=== PATIENT | male | born 1965 | race Caucasian/White ===

== ENCOUNTER 2018-04-25 19:00 | Emergency (ER) | payer MEDICAID ==
[~2018-04-25] VITALS: Ht 167.6 cm; Wt 67.1 kg
[2018-04-25 19:23] VITALS: BP 149/103
--- NOTE | 2018-04-25 19:48 | NUR ---
PT AMBULATED TO LOBBY WITH VSS. ACCOMPANIED BY FAMILY.
--- NOTE | 2018-04-25 20:26 | NUR ---
53/M BIB SON FOR ETOH INTOXICATION. PT HAS BEEN DRINKING 3-4 BEERS FOR 2 WEEKS. PT REPORTS 4/10 DIFFUSE ABD PAIN. DENIES FEVER, NAUSEA, VOMITING, DIARRHEA, CONSTIPATION. PT AOX4, GCS 14, WITH MILD CONFUSION, AMBULATORY, RR EVEN AND UNLABORED. LUNG SOUNDS CLEAR BL. BS ACTIVE X4, ABD SOFT ROUND NONTENDER.
[2018-04-25 20:51] LABS: BASOPHILS # (AUTO) 0.1 K/uL (0.00-0.22); BASOPHILS % (AUTO) 1.2 % (0.0-2.0); EOSINOPHILS % (AUTO) 0.2 % (0.0-4.0); HEMATOCRIT 50.9 % (36-52); HEMOGLOBIN 17.1 g/dL (12.0-18.0); LYMPHOCYTES # (AUTO) 0.9 K/uL (2.0-11.5); LYMPHOCYTES % (AUTO) 19.2 % (20.5-51.1); MEAN CORPUSCULAR HEMOGLOBIN 31 pg (27-31); MEAN CORPUSCULAR HGB CONC 34 g/dL (33-37); MEAN CORPUSCULAR VOLUME 92.9 fL (80-94); MONOCYTES # (AUTO) 0.4 K/uL (0.8-1.0); MONOCYTES % (AUTO) 8.3 % (1.7-9.3); NEUTROPHILS # (AUTO) 3.4 K/uL (1.8-7.7); NEUTROPHILS % (AUTO) 71.1 % (42.2-75.2); PLATELET COUNT (AUTO) 163 K/uL (140-450); RED BLOOD CELL COUNT(AUTO) 5.48 MIL/uL (4.20-6.10); RED CELL DISTRIBUTION WIDTH 14.7 % (11.6-13.7); WHITE BLOOD COUNT (AUTO) 4.8 K/uL (4.8-10.8)
[2018-04-25] MEDS ORDERED: NACL 0.9% 2,000 ML IV ONE (21:05)
[2018-04-25 21:08] LABS: BARBITURATE, URINE NEG. ng/ml (NEG <=200); BENZODIAZEPINE, URINE NEG. ng/mL (NEG <=200); CANNABINOID, URINE NEG. ng/mL (NEG <=50); COCAINE, URINE NEG. ng/mL (NEG <=300); OPIATE, URINE NEG. ng/mL (NEG <=2000); PHENCYCLIDINE SCREEN,URINE NEG. ng/mL (NEG <=25)
[2018-04-25 21:19] LABS: ANION GAP 18.5 (8-16); CARBON DIOXIDE 28.1 mmol/L (21-32); CREATININE 0.8 mg/dL (0.7-1.3); POTASSIUM 3.6 mmol/L (3.5-5.1)
[2018-04-25 21:22] LABS: ALBUMIN 4.8 g/dL (3.4-5.0); TOTAL BILIRUBIN 0.8 mg/dL (0.0-1.0)
--- NOTE | 2018-04-25 22:00 | NUR ---
PT LAYING IN BED, RR EVEN AND UNLABORED. VS NOTED. ALL NEEDS MET AT THIS TIME.
[2018-04-25] MEDS ORDERED: NACL 0.9% 1,000 ML IV ONE (22:35)
--- NOTE | 2018-04-25 23:40 | NUR ---
PROVIDED PT WITH ALCOHOL/SUBSTANCE ABUSE PACKET
[2018-04-25 23:41] VITALS: BP 157/85
--- NOTE | 2018-04-25 23:41 | NUR ---
Patient discharged with v/s stable. Written and verbal after care instructions given and explained. Patient verbalized understanding. Ambulatory with steady gait. All questions addressed prior to discharge. Advised to follow up with PMD.
== END 2018-04-25 23:41 | disposition home or self-care (01) ==
LOC: MED 19:00
DX: F10.129 Alcohol abuse with intoxication, unspecified (principal); R10.84 Generalized abdominal pain
CPT/HCPCS: 36415; 80053; 80305; 83690; 85025; 99283; G0482; J7030